=== PATIENT | male | born 1975 | race Caucasian/White ===

== ENCOUNTER 2017-01-04 19:46 | Emergency (ER) | payer SELFPAY ==
[2017-01-04 21:16] LABS: BASOPHILS 0.3 % (0-2); EOSINOPHILS 2.1 % (0-7); HEMATOCRIT 45.1 % (42.0-54.0); IMMATURE GRANULOCYTES 0.4 % (0-5); LYMPHOCYTES 34.6 % (15-50); MCH 32.2 pg (26.0-34.0); MCHC 33.3 g/dL (31.0-37.0); MCV 96.8 fL (80.0-100.0); MONOCYTES 8.1 % (2-11); NEUTROPHILS 54.5 % (40-80); PLATELET COUNT 249 10x3/uL (130-400); RBC 4.66 10x6/uL (4.20-6.10); RDW 13.4 % (11.5-14.5); WBC 10.4 10x3/uL (4.8-10.8)
[2017-01-04 21:44] LABS: ALBUMIN 3.8 g/dL (3.4-5.0); ALKALINE PHOSPHATASE 77 U/L (46-116); ALT (SGPT) 29 U/L (10-68); BILIRUBIN - TOTAL 0.21 mg/dL (0.2-1.3); CALC OSMOLALITY 285 mosm/kg (275-300); CALCIUM 8.7 mg/dL (8.5-10.1); CARBON DIOXIDE 28.2 mmol/L (21.0-32.0); CHLORIDE - SERUM 106 mmol/L (98-107); CREATININE - SERUM 0.9 mg/dL (0.6-1.3); GLUCOSE 109 mg/dL (74-106); POTASSIUM - SERUM 4.1 mmol/L (3.5-5.1); PROTEIN - SERUM 7.2 g/dL (6.4-8.2); SODIUM 142 mmol/L (136-145); UREA NITROGEN 17 mg/dL (7-18); eGFR NON AFRICAN AMERICAN > 90 mL/min (90-120)
[2017-01-04 22:27] LABS: UDS - AMPHET POSITIVE QUAL (NEGATIVE); UDS - BARB NEGATIVE QUAL (NEGATIVE); UDS - BENZO NEGATIVE QUAL (NEGATIVE); UDS - COCAINE NEGATIVE QUAL (NEGATIVE); UDS - METH NEGATIVE QUAL (NEGATIVE); UDS - OPIATE NEGATIVE QUAL (NEGATIVE); UDS - PCP NEGATIVE QUAL (NEGATIVE); UDS - THC POSITIVE QUAL (NEGATIVE)
[2017-01-04 22:46] LABS: CREATINE KINASE 90 UL (21-232)
[2017-01-04 22:48] LABS: TROPONIN-I < 0.017 ng/mL (0.000-0.060)
== END 2017-01-05 00:12 | disposition home or self-care (01) ==
LOC: D.ER 19:46
PROVIDERS: Nurse Practitioner Family; Physician Assistant
DX: R55 Syncope and collapse (principal); F17.200 Nicotine dependence, unspecified, uncomplicated; I45.10 Unspecified right bundle-branch block